=== PATIENT | male | born 1995 | race African-American/Black ===

== ENCOUNTER 2018-01-07 18:39 | Emergency (ER) | payer SELFPAY ==
[~2018-01-07 18:39] MED LIST: NO CURRENT MEDS; PERCOCET 5/325M1 TAB PO
== END 2018-01-07 19:00 | disposition expired | DRG 999 ==
LOC: ED 18:39
PROC: 0W9B30Z Drainage of Left Pleural Cavity with Drainage Device, Percutaneous Approach (ICD-10-PCS; principal; 2018-01-07)
PROC: 0W9930Z Drainage of Right Pleural Cavity with Drainage Device, Percutaneous Approach (ICD-10-PCS; 2018-01-07)
PROC: 0BH17EZ Insertion of Endotracheal Airway into Trachea, Via Natural or Artificial Opening (ICD-10-PCS; 2018-01-07)
PROC: 30233N1 Transfusion of Nonautologous Red Blood Cells into Peripheral Vein, Percutaneous Approach (ICD-10-PCS; 2018-01-07)
PROC: 30233N1 Transfusion of Nonautologous Red Blood Cells into Peripheral Vein, Percutaneous Approach (ICD-10-PCS; 2018-01-07)
PROC: 5A12012 Performance of Cardiac Output, Single, Manual (ICD-10-PCS; 2018-01-07)
DX: S27.2XXA Traumatic hemopneumothorax, initial encounter (principal); S42.302A Unspecified fracture of shaft of humerus, left arm, initial encounter for closed fracture; I46.8 Cardiac arrest due to other underlying condition; S82.92XA Unspecified fracture of left lower leg, initial encounter for closed fracture; S82.91XA Unspecified fracture of right lower leg, initial encounter for closed fracture; V29.40XA Motorcycle driver injured in collision with unspecified motor vehicles in traffic accident, initial encounter
CPT/HCPCS: P9016